=== PATIENT | female | born 1990 | race Caucasian/White ===

== ENCOUNTER 2019-04-06 18:41 | Emergency (ER) | payer OTHER ==
[2019-04-06] MEDS ORDERED: SODIUM CHLORIDE 0.9% 500 ML 500 ML IV STA (19:42)
[2019-04-06 20:15] LABS: Appearance,Urine Clear (Clear); Bilirubin,Urine Negative (Negative); Blood,Urine Negative (Negative); Color,Urine Light Yellow; Glucose,Urine (UA) Negative (Negative); HCT 35.8 % (34.0-46.0); Ketones,Urine Negative (Negative); Leukocyte Esterase,Urine Negative (Negative); MCH 27.6 pg (25.0-35.0); MCHC 33.6 g/dL (31.0-37.0); MCV 82.1 fL (80.0-100.0); Mean Platelet Volume 6.4; Nitrite,Urine Negative (Negative); Platelet Count 288 k/uL (150-450); Protein,Urine Negative (Negative); RBC 4.35 m/uL (3.80-5.40); RDW 14.1 % (11.5-15.5); Urobilinogen,Urine <2.0 mg/dL (<2.0); WBC 11.8 k/uL (3.8-10.6)
[2019-04-06 20:24] LABS: ALT 29 U/L (9-52); AST 24 U/L (14-36); African American GFR (CKD) >90 (>60 ml/min/1.73 sqM); Albumin 4.4 g/dL (3.5-5.0); Alkaline Phosphatase 59 U/L (38-126); Anion Gap 12 mmol/L; Blood Urea Nitrogen 13 mg/dL (7-17); Calcium 9.8 mg/dL (8.4-10.2); Carbon Dioxide 23 mmol/L (22-30); Chloride 106 mmol/L (98-107); Glucose 100 mg/dL (74-99); Potassium 3.7 mmol/L (3.5-5.1); Sodium 141 mmol/L (137-145); Total Bilirubin 0.2 mg/dL (0.2-1.3); Total Protein 7.1 g/dL (6.3-8.2)
--- NOTE | 2019-04-06 22:44 | US ---
EXAM: US First Trimester, Transabdominal US , Transvaginal CLINICAL HISTORY: ITS.REASON US Reason: Pain TECHNIQUE: Real-time transabdominal and transvaginal obstetrical ultrasound of the maternal pelvis and a first trimester with image documentation. Transvaginal imaging was used for better evaluation of the fetus and adnexa. COMPARISON: No relevant prior studies available. FINDINGS: Gestation: Gestational sac is identified within the distal endometrial measuring approximately 1.08 x 0.53 x 0.84 cm. There is a normal- appearing yolk sac identified measuring 2 mm. A pole is not currently identified. Placenta/amniotic fluid: Cannot be adequately evaluated due to the early gestational age. Uterus/cervix: The uterus measures 9.2 x 4.9 x 5.8 cm. No myometrial mass. Ovaries: The right ovary measures 2.7 x 1.2 x 1.6 cm. Left ovary measures 1.9 x 1.3 x 2.0 cm. There is a cystic lesion within the left ovary measuring approximately 1.5 cm, possibly the corpus luteum. Free fluid: No free fluid. IMPRESSION: 1. Likely early intrauterine gestation, crown-rump length not currently identified. Short interval follow-up sonography recommended to ensure viable . 2. Likely corpus luteum within the left ovary.
[2019-04-06 23:11] VITALS: BP 126/68; PULSE 95; RESP 18; TEMP 98.2
--- NOTE | 2019-04-06 23:28 | ED ---
Abdominal Pain HPI - General Chief Complaint: Abdominal Pain Stated Complaint: early /cramping Time Seen by Provider: 04/06/19 19:05 Source: patient Mode of arrival: ambulatory Limitations: no limitations - History of Present Illness Initial Comments: patient is a 28-year-old, female of unknown gestational age is presenting to the emergency department with a chief complaint of a concern for UTI and abdominal cramping. Patient reports left-sided abdominal intermittent cramping. Patient reports that she has been on the patient for 7 years and approximately one month ago she found out she was using a home test. Patient is unsure of her gestational age. She reports recently she was at her primary care who diagnosed her with a UTI and prescribed Macrobid. Patient took one dose of the Macrobid and is concerned for possible teratogenicity of the medication. Patient denies increased frequency, urgency or dysuria. Patient denies any vaginal discharge, bleeding or foul odor. Patient denies changes in bowel patterns. Patient denies any nausea, vomiting or diarrhea. Patient reports she is looking for an OB - Related Data Home Medications Medication Instructions Recorded Confirmed Medroxyprogesterone Acetate 1 injection IM DIRECTED 07/28/14 04/07/15 [Depo-Provera] Previous Rx's Medication Instructions Recorded Lactulose 10 gm PO BID 5 Days ml 04/07/15 Allergies Allergy/AdvReac Type Severity Reaction Status Date / Time Sulfa (Sulfonamide Allergy Rash/Hives Verified 04/06/19 18:58 Antibiotics) codeine AdvReac Rash/Hives Verified 04/06/19 18:58 Penicillins AdvReac Unknown Verified 04/06/19 18:58 Review of Systems ROS Statement: Those systems with pertinent positive or pertinent negative responses have been documented in the HPI. ROS Other: All systems not noted in ROS Statement are negative. Past Medical History Past Medical History: No Reported History History of Any Multi-Drug Resistant Organisms: None Reported Past Surgical History: Section Additional Past Surgical History / Comment(s): d and c Past Psychological History: No Psychological Hx Reported Smoking Status: Never smoker Past Alcohol Use History: None Reported, Occasional Past Drug Use History: None Reported General Exam Limitations: no limitations General appearance: alert, in no apparent distress Head exam: Present: atraumatic, normocephalic, normal inspection Eye exam: Present: normal appearance, PERRL, EOMI Pupils: Present: normal accommodation ENT exam: Present: normal exam, mucous membranes moist, normal external ear exam Neck exam: Present: normal inspection, full ROM Respiratory exam: Present: normal lung sounds bilaterally Cardiovascular Exam: Present: regular rate, normal rhythm, normal heart sounds GI/Abdominal exam: Present: soft, tenderness (Mild tenderness on palpation in the left lower quadrant), normal bowel sounds Extremities exam: Present: normal inspection, full ROM Back exam: Present: normal inspection, full ROM. Absent: CVA tenderness (R), CVA tenderness (L) Neurological exam: Present: alert, oriented X3 Psychiatric exam: Present: normal affect, normal mood Skin exam: Present: warm, intact, normal color. Absent: rash Course Vital Signs 04/06/19 04/06/19 04/06/19 18:58 22:03 23:10 Temperature 98.9 F 98.2 F Pulse Rate 112 H 95 Respiratory 18 17 18 Rate Blood Pressure 155/91 126/68 O2 Sat by Pulse 97 98 Oximetry 04/06/19 23:36 Temperature Pulse Rate Respiratory 18 Rate Blood Pressure O2 Sat by Pulse Oximetry Medical Decision Making - Medical Decision Making patient is a 28-year-old, female of unknown gestational age is presenting to the emergency department with a chief complaint of abdominal cramping and possible UTI. Type and screen was performed patient is AB-. CBC, CMP and UA are unremarkable. Patient does not appear to have a UTI based on laboratory results. OB ultrasound is showing an early intrauterine with the exact measurements are now fully determine. Short-term repeat ultrasound is recommended. Patient has an hCG Quant of approximately [address] her at about 6 weeks. Patient was offered a pelvic but declined and states that she is going to obtain an OB threesome. Strict return parameters were thoroughly discussed with patient was understanding and agreeable. Case discussed with physician. - Lab Data Result diagrams: 04/06/19 20:05 04/06/19 20:05 Lab Results 04/06/19 04/06/19 04/06/19 Range/Units 20:05 20:05 20:05 WBC 11.8 H (3.8-10.6) k/uL RBC 4.35 (3.80-5.40) m/uL Hgb 12.0 (11.4-16.0) gm/dL Hct 35.8 (34.0-46.0) % MCV 82.1 (80.0-100.0) fL MCH 27.6 (25.0-35.0) pg MCHC 33.6 (31.0-37.0) g/dL RDW 14.1 (11.5-15.5) % Plt Count 288 (150-450) k/uL Sodium 141 (137-145) mmol/L Potassium 3.7 (3.5-5.1) mmol/L Chloride 106 (98-107) mmol/L Carbon Dioxide 23 (22-30) mmol/L Anion Gap 12 mmol/L BUN 13 (7-17) mg/dL Creatinine 0.56 (0.52-1.04) mg/dL Est GFR (CKD-EPI)AfAm >90 (>60 ml/min/1.73 sqM) Est GFR (CKD-EPI)NonAf >90 (>60 ml/min/1.73 sqM) Glucose 100 H (74-99) mg/dL Calcium 9.8 (8.4-10.2) mg/dL Total Bilirubin 0.2 (0.2-1.3) mg/dL AST 24 (14-36) U/L ALT 29 (9-52) U/L Alkaline Phosphatase 59 (38-126) U/L Total Protein 7.1 (6.3-8.2) g/dL Albumin 4.4 (3.5-5.0) g/dL HCG, Quant mIU/mL Urine Color Light Yellow Urine Appearance Clear (Clear) Urine pH 6.0 (5.0-8.0) Ur Specific [place] 1.000 L (1.001-1.035) Urine Protein Negative (Negative) Urine Glucose (UA) Negative (Negative) Urine Ketones Negative (Negative) Urine Blood Negative (Negative) Urine Nitrite Negative (Negative) Urine Bilirubin Negative (Negative) Urine Urobilinogen <2.0 (<2.0) mg/dL Ur Leukocyte Esterase Negative (Negative) Urine HCG, Qual (Not Detectd) Blood Type Blood Type Recheck Antibody Screen Spec Expiration Date 04/06/19 04/06/19 04/06/19 Range/Units 20:05 20:05 22:43 WBC (3.8-10.6) k/uL RBC (3.80-5.40) m/uL Hgb (11.4-16.0) gm/dL Hct (34.0-46.0) % MCV (80.0-100.0) fL MCH (25.0-35.0) pg MCHC (31.0-37.0) g/dL RDW (11.5-15.5) % Plt Count (150-450) k/uL Sodium (137-145) mmol/L Potassium (3.5-5.1) mmol/L Chloride (98-107) mmol/L Carbon Dioxide (22-30) mmol/L Anion Gap mmol/L BUN (7-17) mg/dL Creatinine (0.52-1.04) mg/dL Est GFR (CKD-EPI)AfAm (>60 ml/min/1.73 sqM) Est GFR (CKD-EPI)NonAf (>60 ml/min/1.73 sqM) Glucose (74-99) mg/dL Calcium (8.4-10.2) mg/dL Total Bilirubin (0.2-1.3) mg/dL AST (14-36) U/L ALT (9-52) U/L Alkaline Phosphatase (38-126) U/L Total Protein (6.3-8.2) g/dL Albumin (3.5-5.0) g/dL HCG, Quant 6025.1 mIU/mL Urine Color Urine Appearance (Clear) Urine pH (5.0-8.0) Ur Specific [place] (1.001-1.035) Urine Protein (Negative) Urine Glucose (UA) (Negative) Urine Ketones (Negative) Urine Blood (Negative) Urine Nitrite (Negative) Urine Bilirubin (Negative) Urine Urobilinogen (<2.0) mg/dL Ur Leukocyte Esterase (Negative) Urine HCG, Qual Detected (Not Detectd) Blood Type AB Positive Blood Type Recheck No Antibody Screen NEGATIVE Spec Expiration Date 04/09/20192342 Disposition Clinical Impression: Abdominal cramping Disposition: HOME SELF-CARE Condition: Stable Instructions (If sedation given, give patient instructions): (ED) Additional Instructions: Please follow-up with your OB. Please return to emergency department if symptoms worsen. Is patient prescribed a controlled substance at d/c from ED?: No Referrals: Ida Syed MD [Primary Care Provider] - 1-2 days Time of Disposition: :28
== END 2019-04-06 23:37 | disposition home or self-care (01) ==
LOC: EC 18:41
DX: O99.89 Other specified diseases and conditions complicating pregnancy, childbirth and the puerperium (principal); R10.9 Unspecified abdominal pain; Z67.31 Type AB blood, Rh negative; Z88.0 Allergy status to penicillin; Z88.2 Allergy status to sulfonamides; Z88.5 Allergy status to narcotic agent; Z79.3 Long term (current) use of hormonal contraceptives; Z98.890 Other specified postprocedural states; Z3A.01 Less than 8 weeks gestation of pregnancy; Z53.29 Procedure and treatment not carried out because of patient's decision for other reasons
CPT/HCPCS: 36415; 76801; 76817; 80053; 81003; 81025; 84702; 85027; 86850; 86900; 86901; 87086; 99284

== ENCOUNTER → 2021-02-18 | Outpatient (CLI) | payer OTHER ==
--- NOTE | 2021-02-18 13:09 | US ---
EXAMINATION TYPE: US venous doppler duplex LE LT DATE OF EXAM: 02/18/2021 12:54 PM COMPARISON: CLINICAL HISTORY: LLE M79.605. On depo. Patient states left leg hurts since [place] Covid Vaccine. No redness. No swelling. SIDE PERFORMED: Left TECHNIQUE: The lower extremity deep venous system is examined utilizing real time linear array sonog jasiel with graded compression, doppler sonography and color-flow sonography. VESSELS IMAGED: Common Femoral Vein Deep Femoral Vein Greater Saphenous Vein * Femoral Vein Popliteal Vein Proximal Calf Veins (* superficial vessels) Left Leg: Negative for DVT IMPRESSION: No definite left lower extremity deep vein thrombosis.
--- NOTE | 2021-02-18 14:24 | XR ---
Left femur history:LLE M79.605,M53.3 Sacroccygeal disorders,G89.29 2views of the left femur on 4 images Bone mineralization, joint spaces and alignment are maintained. IMPRESSION: Normal left femur
--- NOTE | 2021-02-18 14:27 | XR ---
Left knee and sacroiliac joints history: Trauma years ago, LLE M79.605,M53.3 Sacroccygeal disorders,G89.29 3 views of left knee, 3views of the sacroiliac joints Sacroiliac joints are intact, there is no evident erosion, ankylosis, or some chondral cyst formation , eburnation. Bone mineralization, joint spaces and alignment are maintained The left knee shows no joint effusion. Bone mineralization, joint spaces and alignment are maintained . IMPRESSION: Normal left knee
--- NOTE | 2021-02-18 16:32 | XR ---
Lumbar sacral spine HISTORY:LLE M79.605,M53.3 Sacroccygeal disorders,G89.29 5views of lumbosacral spine There is a slight spinal curvature. There is no evident spondylolysis or spondylolisthesis. Lumbar ve rtebral bodies show preserved height and bone mineralization. Disc spaces are maintained. IMPRESSION: Normal lumbar spine
== END | disposition home or self-care (01) ==
LOC: RADUSWWP 12:31
PROVIDERS: ATTEND Family Medicine
DX: M79.605 Pain in left leg (principal); M53.3 Sacrococcygeal disorders, not elsewhere classified; G89.29 Other chronic pain
CPT/HCPCS: 72110; 72202

== ENCOUNTER 2021-07-20 21:33 | Emergency (ER) | payer OTHER ==
[2021-07-20 22:49] VITALS: TEMP 100.2
--- NOTE | 2021-07-20 23:06 | XR ---
EXAMINATION TYPE: XR chest 2V DATE OF EXAM: 07/20/2021 COMPARISON: NONE HISTORY: Cough TECHNIQUE: 2 views FINDINGS: Heart and mediastinum are normal. Lungs are clear. Diaphragm is normal. Bony thorax is inta ct. IMPRESSION: Normal chest.
[2021-07-21] MEDS ORDERED: ACETAMINOPHEN TAB 500 MG TAB PO STA (00:18)
[2021-07-21 01:03] VITALS: BP 123/77; PULSE 99; RESP 16
--- NOTE | 2021-07-21 01:03 | ED ---
URI HPI - General Chief Complaint: Upper Respiratory Infection Stated Complaint: Headache,Side Pain Time Seen by Provider: 07/20/21 23:48 Source: patient, RN notes reviewed, old records reviewed Mode of arrival: ambulatory Limitations: no limitations - History of Present Illness Initial Comments: Patient is a 30-year-old female presenting to emergency Department with complaints of cough and congestion along with runny nose over the past 1-2 days. She states she also felt a muscle spasm in the right side of his neck after reaching for something from her child. She states the spasm is better at this time. She denies any chest pain or shortness of breath. She states she's had low-grade temperatures at home. She denies any abdominal pain, nausea or vomiting, no diarrhea. She denies being . She denies history of asthma or COPD. They do admit to history of sick contacts. There are no further complaints. Upon arrival to the ER, temperature is 100.2, pulse is 113, rest of vitals normal. - Related Data Home Medications Medication Instructions Recorded Confirmed Medroxyprogesterone Acetate 1 injection IM DIRECTED 07/28/14 04/07/15 [Depo-Provera] Previous Rx's Medication Instructions Recorded Lactulose 10 gm PO BID 5 Days ml 04/07/15 Allergies Allergy/AdvReac Type Severity Reaction Status Date / Time Sulfa (Sulfonamide Allergy Rash/Hives Verified 07/20/21 22:49 Antibiotics) codeine AdvReac Rash/Hives Verified 07/20/21 22:49 Penicillins AdvReac Unknown Verified 07/20/21 22:49 Review of Systems ROS Statement: Those systems with pertinent positive or pertinent negative responses have been documented in the HPI. ROS Other: All systems not noted in ROS Statement are negative. Past Medical History Past Medical History: No Reported History History of Any Multi-Drug Resistant Organisms: None Reported Past Surgical History: Section Additional Past Surgical History / Comment(s): d and c Past Psychological History: No Psychological Hx Reported Smoking Status: Never smoker Past Alcohol Use History: None Reported, Occasional Past Drug Use History: None Reported General Exam - General Exam Comments Initial Comments: GENERAL: Patient is well-developed and well-nourished. Patient is nontoxic and in no acute distress. HEAD: Atraumatic, normocephalic. EYES: Pupils equal round and reactive to light, extraocular movements intact, sclera anicteric, conjunctiva are normal. Eyelids were unremarkable. ENT: Moist mucous membranes. NECK: Normal range of motion, supple without lymphadenopathy or JVD. LUNGS: Unlabored respirations. Breath sounds clear to auscultation bilaterally and equal. No wheezes rales or rhonchi. HEART: Regular rate and rhythm without murmurs, rubs or gallops. ABDOMEN: Soft, nontender, normoactive bowel sounds. No guarding, no rebound. No masses appreciated. MUSCULOSKELETAL: Normal extremities with adequate strength and normal range of motion, no pitting or edema. No clubbing or cyanosis. NEUROLOGICAL: Patient is alert and oriented x 3. SKIN: Warm, Dry, normal turgor, no rashes or lesions noted. Limitations: no limitations Course Vital Signs 07/20/21 22:45 Temperature 100.2 F H Pulse Rate 113 H Respiratory 18 Rate Blood Pressure 129/89 O2 Sat by Pulse 100 Oximetry Medical Decision Making - Medical Decision Making Patient is a 30 year old female here with viral type symptoms over the past 1-2 days. She did arrive with a mild fever, to give her some Tylenol. Took ibuprofen prior to arrival. Chest x-ray reveals no abnormal findings. Rapid Covid is negative. Discussed these findings with the patient. Symptoms are most likely viral. Recommended continue to treat the fever and follow-up with primary care. She is agreeable splenic care and she is stable for discharge. - Lab Data Lab Results 07/20/21 Range/Units 22:54 Coronavirus (PCR) Not Detected (Not Detectd) Disposition Clinical Impression: Viral illness Disposition: HOME SELF-CARE Condition: Stable Instructions (If sedation given, give patient instructions): Upper Respiratory Infection (ED) Additional Instructions: Please return to the Emergency Department if symptoms worsen or any other concerns. Continue to alternate between Tylenol and ibuprofen for fever control and body aches. Follow-up with your primary care. Is patient prescribed a controlled substance at d/c from ED?: No Referrals: Ida Syed MD [Primary Care Provider] - 1-2 days Time of Disposition: 01:02
== END 2021-07-21 01:06 | disposition home or self-care (01) ==
LOC: EC 21:33
DX: B34.9 Viral infection, unspecified (principal); Z20.822 Contact with and (suspected) exposure to COVID-19
CPT/HCPCS: 71046; 87635; 99283

== ENCOUNTER 2021-09-06 13:13 | Emergency (ER) | payer OTHER ==
[2021-09-06 13:37] VITALS: BP 164/102; PULSE 98; RESP 18; TEMP 98.8
--- NOTE | 2021-09-06 18:13 | ED ---
ENT HPI - General Chief complaint: ENT Stated complaint: right side tonsil swelling Time Seen by Provider: 09/06/21 14:23 Source: patient, RN notes reviewed Mode of arrival: ambulatory Limitations: no limitations - History of Present Illness Initial comments: 31-year-old female presents to emergency department with sore throat. Patient states that she has swelling on the right side of her throat she has noticed redness and pain states that something is caught area. Patient denies nausea vomiting no history of mono. Patient offers no complaints. - Related Data Home Medications Medication Instructions Recorded Confirmed Medroxyprogesterone Acetate 1 injection IM DIRECTED 07/28/14 04/07/15 [Depo-Provera] Previous Rx's Medication Instructions Recorded Lactulose 10 gm PO BID 5 Days ml 04/07/15 Azithromycin [Zithromax Z-pack (6 0 mg PO DIRECTED #1 packet 09/06/21 tabs)] Allergies Allergy/AdvReac Type Severity Reaction Status Date / Time Sulfa (Sulfonamide Allergy Rash/Hives Verified 09/06/21 13:34 Antibiotics) codeine AdvReac Rash/Hives Verified 09/06/21 13:34 Penicillins AdvReac Unknown Verified 09/06/21 13:34 Review of Systems ROS Statement: Those systems with pertinent positive or pertinent negative responses have been documented in the HPI. ROS Other: All systems not noted in ROS Statement are negative. Past Medical History Past Medical History: No Reported History History of Any Multi-Drug Resistant Organisms: None Reported Past Surgical History: Section Additional Past Surgical History / Comment(s): d and c Past Psychological History: No Psychological Hx Reported Smoking Status: Never smoker Past Alcohol Use History: None Reported, Occasional Past Drug Use History: None Reported General Exam Limitations: no limitations General appearance: alert, in no apparent distress Head exam: Present: atraumatic, normocephalic, normal inspection Eye exam: Present: normal appearance, PERRL, EOMI. Absent: scleral icterus, conjunctival injection, periorbital swelling ENT exam: Present: mucous membranes moist, TM's normal bilaterally, normal external ear exam. Absent: normal exam, normal oropharynx (Erythematous right tonsil with mild swelling no obvious abscess.) Neck exam: Present: normal inspection, full ROM, lymphadenopathy. Absent: tenderness, meningismus Respiratory exam: Present: normal lung sounds bilaterally. Absent: respiratory distress, wheezes, rales, rhonchi, stridor Cardiovascular Exam: Present: regular rate, normal rhythm, normal heart sounds. Absent: systolic murmur, diastolic murmur, rubs, gallop, clicks Course Vital Signs 09/06/21 13:35 Temperature 98.8 F Pulse Rate 98 Respiratory 18 Rate Blood Pressure 164/102 O2 Sat by Pulse 99 Oximetry Medical Decision Making - Medical Decision Making Patient was started on antibiotics will be discharged to condition return parameters were discussed. Disposition Clinical Impression: Acute bacterial tonsillitis Disposition: HOME SELF-CARE Condition: Stable Instructions (If sedation given, give patient instructions): Tonsillitis (ED) Additional Instructions: Please return to the Emergency Department if symptoms worsen or any other concerns. Prescriptions: Azithromycin [Zithromax Z-pack (6 tabs)] 0 mg PO DIRECTED #1 packet Is patient prescribed a controlled substance at d/c from ED?: No Referrals: Ida Syed MD [Primary Care Provider] - 1-2 days Time of Disposition: 18:13
== END 2021-09-06 18:15 | disposition home or self-care (01) ==
LOC: EC 13:13
DX: J03.80 Acute tonsillitis due to other specified organisms (principal); B96.89 Other specified bacterial agents as the cause of diseases classified elsewhere; Z88.0 Allergy status to penicillin; Z88.2 Allergy status to sulfonamides; Z88.5 Allergy status to narcotic agent
CPT/HCPCS: 99282